=== PATIENT | female | born 1995 | race African-American/Black ===

== ENCOUNTER 2016-08-30 23:55 | Emergency (ER) | payer OTHER ==
[~2016-08-30 23:55] MED LIST: PRENATAL1 TA1 PO
== END 2016-08-31 00:38 | disposition home or self-care (01) ==
LOC: SED 23:55
DX: O99.712 Diseases of the skin and subcutaneous tissue complicating pregnancy, second trimester (principal); L02.214 Cutaneous abscess of groin; Z3A.18 18 weeks gestation of pregnancy
CPT/HCPCS: 10060; 99284